=== PATIENT | male | born 1990 ===

== ENCOUNTER 2018-04-09 17:20 | Emergency (ER) | payer OTHER ==
[2018-04-09 17:53] VITALS: BP 138/75
--- NOTE | 2018-04-09 19:02 | UC ---
Throat Pain/Nasal Jose HPI - HPI Summary HPI Summary: Patient is a 28-year-old male presenting to the with chief complaint of sore throat 5 days. Denies any history of strep throat. Denies any fevers, sweats , chills. Also is endorsing some bilateral upper aphthous ulcers. Vital signs are stable on arrival. He denies any recent illness or sick contacts. - History of Current Complaint Chief Complaint: UCGeneralIllness Stated Complaint: THROAT PAIN Time Seen by Provider: 04/09/18 17:44 Hx Obtained From: Patient Onset/Duration: Gradual Onset Severity: Moderate Pain Intensity: 3 Pain Scale Used: 0-10 Numeric Associated Signs & Symptoms: Positive: Negative - Epiglottits Risk Factors Epiglottis Risk Factors: Negative - Allergies/Home Medications Allergies/Adverse Reactions: Allergies Allergy/AdvReac Type Severity Reaction Status Date / Time No Known Allergies Allergy Verified 04/09/18 17:53 Home Medications: Home Medications NK [No Home Medications Reported] 04/09/18 [History Confirmed 04/09/18] PMH/Surg Hx/FS Hx/Imm Hx Previously Healthy: Yes - Surgical History Surgical History: None Surgery Procedure, Year, and Place: denies - Family History Known Family History: Positive: Cardiac Disease - Social History Occupation: Employed Full-time Alcohol Use: Occasionally Substance Use Type: None Smoking Status (MU): Never Smoked Tobacco Review of Systems Constitutional: Negative Skin: Negative ENT: Sore Throat Respiratory: Negative Cardiovascular: Negative Motor: Negative Neurovascular: Negative Neurological: Negative Is Patient Immunocompromised?: No All Other Systems Reviewed And Are Negative: Yes Physical Exam Triage Information Reviewed: Yes Appearance: Well-Appearing, Well-Nourished Vital Signs: Initial Vital Signs Temp 98.6 F 04/09/18 17:48 Pulse 88 04/09/18 17:48 Resp 18 04/09/18 17:48 BP 138/75 04/09/18 17:48 Pulse Ox 100 04/09/18 17:48 Vital Signs Reviewed: Yes Eye Exam: Normal ENT: Positive: Other - no pharyngeal erythema, bilateral apthous ulcers Dental Exam: Normal Neck exam: Normal Neck: Positive: Supple, No Lymphadenopathy Respiratory Exam: Normal Respiratory: Positive: Chest non-tender Cardiovascular Exam: Normal Cardiovascular: Positive: RRR Musculoskeletal Exam: Normal Musculoskeletal: Positive: Strength Intact Psychological: Positive: Normal Response To Family Skin Exam: Normal Throat Pain/Nasal Course/Dx - Course Course Of Treatment: During the course treatment, the patient is evaluated for His ulcers and sore throat. There is no pharyngeal erythema or white exudates. 2 aphthous ulcers on the bilateral upper gumline. I have offered Magic mouthwash and he declines this time. He has been taking Cepacol and ibuprofen with a moderate amount of relief. He'll return for any worsening or changing symptoms. He is diagnosed with a sore throat and aphthous ulcers. - Differential Dx/Diagnosis Provider Diagnoses: Apthous ulcers, sore throat Discharge - Sign-Out/Discharge Documenting (check all that apply): Patient Departure - Discharge Plan Condition: Stable Disposition: HOME Patient Education Materials: Pharyngitis (ED) Referrals: No Primary Care Phys,NOPCP [Primary Care Provider] - Additional Instructions: Cepacol Tylenol and ibuprofen - take one every 3 hours intermittently Drink cold liquids and ice cream - Billing Disposition and Condition Condition: STABLE Disposition: Home
== END 2018-04-09 18:41 | disposition home or self-care (01) ==
LOC: UCEAST 17:20
DX: J02.9 Acute pharyngitis, unspecified (principal); K12.0 Recurrent oral aphthae
CPT/HCPCS: 87651; 99201; G0463